=== PATIENT | male | born 1955 | race African-American/Black ===

== ENCOUNTER → 2016-09-05 12:34 | Outpatient (CLI) | payer SELFPAY | END | disposition home or self-care (01) | LOC: D.US 12:34 | DX: G45.9 Transient cerebral ischemic attack, unspecified (principal) ==

== ENCOUNTER → 2016-09-18 07:28 | Outpatient (CLI) | payer SELFPAY | END | disposition home or self-care (01) | LOC: D.CT 07:28 | DX: G45.9 Transient cerebral ischemic attack, unspecified (principal); I10 Essential (primary) hypertension ==

== ENCOUNTER → 2016-10-15 07:49 | Outpatient (CLI) | payer SELFPAY | LOC: D.MRI 10-11 08:30 | DX: I10 Essential (primary) hypertension (principal) ==